=== PATIENT | male | born 1965 ===

== ENCOUNTER 2017-08-28 07:22 | Inpatient (IN) | payer MEDICAID ==
[2017-08-28 07:22] VITALS: BMI 33.3
[2017-08-28] MEDS ORDERED: Sodium Chloride 0.9% 1,000 ML IV STA ×2 (07:57→08:12)
[2017-08-28 08:13] LABS: BASO # 0.1 K/uL (0.0-0.2); BASO % 1.1 % (0.0-2.0); EOS # 0.1 K/uL (0.0-0.7); EOS % 1.8 % (0.0-4.0); HEMATOCRIT 40.2 % (35.0-51.0); LYMPH % 23.9 % (20.0-40.0); MEAN CELL VOLUME 82.6 fl (80.0-94.0); MEAN CORPUSCULAR HEMOGLOBIN 28.3 pg (27.0-31.0); MEAN CORPUSCULAR HGB CONC 34.3 g/dL (33.0-37.0); MEAN PLATELET VOLUME 8.4 fl (7.2-11.7); MONO # 0.7 K/uL (0.0-0.8); MONO % 8.8 % (0.0-10.0); NEUT # 5.4 K/uL (1.8-7.0); NEUT % 64.4 % (50.0-75.0); NRBC % 0.1 % (0.0-0.0); RED CELL DISTRIBUTION WIDTH 12.6 % (11.5-14.5); WHITE BLOOD COUNT 8.3 K/uL (4.8-10.8)
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
[2017-08-28 08:42] LABS: BILIRUBIN,TOTAL 0.8 mg/dl (0.2-1.3); CALCIUM 9.1 mg/dL (8.4-10.2); POTASSIUM 3.9 MMOL/L (3.6-5.0); TOTAL PROTEIN 7.9 G/DL (6.3-8.2)
--- NOTE | 2017-08-28 09:27 | RAD ---
HISTORY: Medical clearance COMPARISON: 07/12/2016 FINDINGS: LUNGS: No active pulmonary disease. PLEURA: No significant pleural effusion identified, no pneumothorax apparent. CARDIOVASCULAR: Normal. OSSEOUS STRUCTURES: No significant abnormalities. VISUALIZED UPPER ABDOMEN: Normal. OTHER FINDINGS: None. IMPRESSION: No active disease.
[2017-08-28 10:40] LABS: RBC URINE 3 /hpf (0-3); URINE BILIRUBIN NEGATIVE (NEGATIVE); URINE BLOOD NEGATIVE (NEGATIVE); URINE COLOR STRAW (YELLOW); URINE GLUCOSE (UA) 50 mg/dL (Normal); URINE KETONE NEGATIVE (NEGATIVE); URINE LEUKOCYTE ESTERASE NEG Leu/uL (Negative); URINE PROTEIN NEGATIVE (NEGATIVE); URINE UROBILINOGEN 0.2-1.0 mg/dL (0.2-1.0); WBC URINE 1 /hpf (0-5)
--- NOTE | 2017-08-28 12:05 | CARD ---
APPROVED REPORT EKG Measurement Heart [id number] <Conclusion> Sinus bradycardia Otherwise normal ECG
--- NOTE | 2017-08-28 18:01 | ED PDOC ---
- Laboratory Results Result Diagrams: 08/28/17 08:04 08/28/17 08:04 - ECG ECG Rhythm: Positive for: Normal QRS, Normal ST Segment, Sinus Bradycardia O2 Sat by Pulse Oximetry: 98 (RA) Pulse Ox Interpretation: Normal - Radiology X-Ray: Read By Radiologist - Progress ED Course And Treament: Accession No. : [id number] Patient Name / ID : LASHAWN MEDINA / [id number] Exam Date : 08/28/2017 08:35:32 ( Approved ) Study Comment : Sex / Age : M / 52Y Creator : Jeff Solis MD Dictator : Jeff Solis MD Slasher Operator : Director Ambulatory : Jeff Solis MD Approver2 : Report Date : 08/28/2017 09:25:45 My Comment : HISTORY: Medical clearance COMPARISON: 07/12/2016 FINDINGS: LUNGS: No active pulmonary disease. PLEURA: No significant pleural effusion identified, no pneumothorax apparent. CARDIOVASCULAR: Normal. OSSEOUS STRUCTURES: No significant abnormalities. VISUALIZED UPPER ABDOMEN: Normal. OTHER FINDINGS: None. IMPRESSION: No active disease. Medical Decision Making Medical Decision Making: Patient signed out to provider at [address] Vanessa pending crisis evaluation for suicidal attempt and depression. 1730 patient evaluated by plywood factory worker and patient is to be admitted. Medically stable for psychiatric admission. Scribe Attestation Documented by Camille Askew acting as a scribe for Trinity Choe MD. Provider Attestation: All medical record entries made by the Scribe were at my direction and personally dictated by me. I have reviewed the chart and agree that the record accurately reflects my personal performance of the history, physical exam, medical decision making, and the department course for this patient. I have also personally directed, reviewed, and agree with the discharge instructions and disposition. Disposition - Clinical Impression Clinical Impression: Depression, Polysubstance abuse - POA Present On Arrival: None - Disposition Disposition: Admitted as In-Patient Disposition Time: 05:30
[2017-08-28 21:29] VITALS: BP 102/68; PULSE 40; RESP 19; TEMP 98.1; O2SAT 98
== END 2017-08-29 00:15 | disposition short-term general hospital (02) | DRG 426 ==
LOC: H.ER 07:22 → H.ERHOLD 17:55 → UNDOADMIN 17:55 → H.PSYCH 22:49
PROVIDERS: ADMIT Psychiatry & Neurology Psychiatry; ATTEND Psychiatry & Neurology Psychiatry
DX: F32.9 Major depressive disorder, single episode, unspecified (principal); R00.1 Bradycardia, unspecified; E11.9 Type 2 diabetes mellitus without complications; F19.10 Other psychoactive substance abuse, uncomplicated; F20.9 Schizophrenia, unspecified; F43.10 Post-traumatic stress disorder, unspecified; F41.9 Anxiety disorder, unspecified; Z87.891 Personal history of nicotine dependence; Z88.0 Allergy status to penicillin

== ENCOUNTER 2017-10-30 17:27 | Emergency (ER) | payer MEDICAID ==
[2017-10-30 17:28] VITALS: BMI 27.0
[2017-10-30 17:48] VITALS: BP 115/73; PULSE 71; RESP 16; TEMP 98.1; O2SAT 96
--- NOTE | 2017-10-30 18:39 | ED PDOC ---
HPI: Dental Pain/Injury Time Seen by Provider: 10/30/17 17:54 Chief Complaint (Nursing): Dental Pain Chief Complaint (Provider): Toothache History Per: Patient History/Exam Limitations: no limitations Onset/Duration Of Symptoms: Days (2 days) Current Symptoms Are (Timing): Still Present Additional Complaint(s): 52 y/o male presents to the ED complaining of atraumatic left lower toothache, onset of 2 days. He reports of taking Motrin this morning, but experienced no relief. He denies any fever, trauma, chest pain, and shortness of breath. Past Medical History Reviewed: Historical Data, Nursing Documentation, Vital Signs Vital Signs: Last Vital Signs Temp 98.1 F 10/30/17 17:45 Pulse 71 10/30/17 17:45 Resp 16 10/30/17 17:45 BP 115/73 10/30/17 17:45 Pulse Ox 96 10/30/17 17:45 - Medical History PMH: Anxiety, Back Problems, Bipolar Disorder, Crohn's Disease, Depression, Diabetes, Hepatitis, Obstructive Bowel, Pneumonia, Post Traumatic Stress Disorder, Schizophrenia Denies: HIV, HTN, Chronic Kidney Disease, Seizures, Sexually Transmitted Disease - Surgical History Surgical History: Cholecystectomy, Hernia Repair - Family History Family History: States: Unknown Family Hx - Social History Current smoker - smoking cessation education provided: No Ex-Smoker (has not smoked in the last 12 months): No Alcohol: None Drugs: Denies - Immunization History Hx Tetanus Toxoid Vaccination: Yes Hx Influenza Vaccination: Yes (10/2016) Hx Pneumococcal Vaccination: No - Home Medications Home Medications: Ambulatory Orders Medication Instructions Recorded Cyclobenzaprine [Cyclobenzaprine 10 mg PO TID #30 tab 09/08/17 HCl] Naproxen [Naprosyn] 500 mg PO BID PRN #20 tablet 09/08/17 Clindamycin [Cleocin] 300 mg PO BID #14 cap 10/30/17 Naproxen [Anaprox DS] 550 mg PO BID PRN #15 tab 10/30/17 - Allergies Allergies/Adverse Reactions: Allergies Allergy/AdvReac Type Severity Reaction Status Date / Time Penicillins Allergy SHORTNESS Verified 10/30/17 17:45 OF BREATH Review of Systems ROS Statement: Except As Marked, All Systems Reviewed And Found Negative Constitutional: Negative for: Fever Cardiovascular: Negative for: Chest Pain Respiratory: Negative for: Shortness of Breath Physical Exam - Reviewed Nursing Documentation Reviewed: Yes Vital Signs Reviewed: Yes - Physical Exam ENT: Positive for: Other (no gingival swelling; pain in the left lower mandibular area w/o teeth) - ECG O2 Sat by Pulse Oximetry: 96 (RA) Pulse Ox Interpretation: Normal Medical Decision Making Medical Decision Making: Time: --18:00 Impression: --toothache Plan: --Toradol 60mg IM --Follow up with dentist Scribe Attestation: Documented by Christopher Campos acting as a scribe for PA. Sravani Disposition - Clinical Impression Clinical Impression: Toothache - Patient ED Disposition Is Patient to be Admitted: No - Disposition Referrals: [facility] [place] [Outside] [facility] [Outside] Disposition: Routine/Home Disposition Time: 18:00 Condition: STABLE Additional Instructions: Follow up with dentist for further evaluation Prescriptions: Clindamycin [Cleocin] 300 mg PO BID #14 cap Naproxen [Anaprox DS] 550 mg PO BID PRN #15 tab PRN Reason: pain Instructions: Toothache (ED) Forms: [employer] (Uzbek) Print Language: JAPANESE
== END 2017-10-30 18:39 | disposition home or self-care (01) ==
LOC: H.ER 17:27
DX: K08.89 Other specified disorders of teeth and supporting structures (principal); E11.9 Type 2 diabetes mellitus without complications; Z88.0 Allergy status to penicillin
CPT/HCPCS: 96372; 99281; J1885

== ENCOUNTER 2017-11-05 02:28 | Emergency (ER) | payer MEDICAID ==
[2017-11-05 02:28] VITALS: BMI 27.0
[2017-11-05 02:50] VITALS: BP 125/80; PULSE 91; RESP 16; TEMP 98.4; O2SAT 98
[2017-11-05] MEDS ORDERED: Mag&Al/Simet/Diphen/Lido 237 ML KIT PO STA (03:58)
--- NOTE | 2017-11-05 04:36 | ED PDOC ---
HPI: Dental Pain/Injury Time Seen by Provider: 11/05/17 03:49 Chief Complaint (Nursing): Dental Pain Chief Complaint (Provider): Mouth pain History Per: Patient History/Exam Limitations: no limitations Current Symptoms Are (Timing): Still Present Quality: "Pain" Additional Complaint(s): Alvaro Marlow is a 52 year old male, with a history of opioid abuse, who presents to the emergency department complaining of left lower jaw pain. Patient has dentures and reports he was seen recently and given antibiotics with pain medication, ultram. Patient feels like a bone is protruding but denies any fever, chills, nausea or vomit. No further medical complaints. PMD: None provided. Past Medical History Reviewed: Historical Data, Nursing Documentation, Vital Signs Vital Signs: Last Vital Signs Temp 98.4 F 11/05/17 02:47 Pulse 91 H 11/05/17 02:47 Resp 16 11/05/17 02:47 BP 125/80 11/05/17 02:47 Pulse Ox 98 11/05/17 02:47 - Medical History PMH: Anxiety, Back Problems, Bipolar Disorder, Crohn's Disease, Depression, Diabetes, Hepatitis, Obstructive Bowel, Pneumonia, Post Traumatic Stress Disorder, Schizophrenia Denies: HIV, HTN, Chronic Kidney Disease, Seizures, Sexually Transmitted Disease - Surgical History Surgical History: Cholecystectomy, Hernia Repair - Family History Family History: States: Unknown Family Hx - Social History Current smoker - smoking cessation education provided: Yes (Some days ) Alcohol: None Drugs: Other (opioids) - Immunization History Hx Tetanus Toxoid Vaccination: Yes Hx Influenza Vaccination: Yes (10/2016) Hx Pneumococcal Vaccination: No - Home Medications Home Medications: Ambulatory Orders Medication Instructions Recorded Cyclobenzaprine [Cyclobenzaprine 10 mg PO TID #30 tab 09/08/17 HCl] Naproxen [Naprosyn] 500 mg PO BID PRN #20 tablet 09/08/17 Clindamycin [Cleocin] 300 mg PO BID #14 cap 10/30/17 Naproxen [Anaprox DS] 550 mg PO BID PRN #15 tab 10/30/17 - Allergies Allergies/Adverse Reactions: Allergies Allergy/AdvReac Type Severity Reaction Status Date / Time Penicillins Allergy SHORTNESS Verified 10/30/17 17:45 OF BREATH Review of Systems ROS Statement: Except As Marked, All Systems Reviewed And Found Negative Constitutional: Negative for: Fever, Chills ENT: Positive for: Mouth Pain (left lower jaw pain) Gastrointestinal: Negative for: Nausea, Vomiting Physical Exam - Reviewed Nursing Documentation Reviewed: Yes Vital Signs Reviewed: Yes - Physical Exam Appears: Positive for: Non-toxic Head Exam: Positive for: ATRAUMATIC, NORMAL INSPECTION, NORMOCEPHALIC Skin: Positive for: Normal Color, Warm, Dry Eye Exam: Positive for: Normal appearance ENT: Positive for: Other (left sided mild swelling to lower gum line. No drainage, no erythema) Neck: Positive for: Normal, Painless ROM, Supple Cardiovascular/Chest: Positive for: Regular Rate, Rhythm. Negative for: Murmur Respiratory: Positive for: Normal Breath Sounds. Negative for: Respiratory Distress Extremity: Positive for: Normal ROM. Negative for: Deformity, Swelling Neurologic/Psych: Positive for: Alert - ECG O2 Sat by Pulse Oximetry: 98 (RA) Pulse Ox Interpretation: Normal Medical Decision Making Medical Decision Making: Initial Impression: Mouth pain Initial Plan: --Motrin tab 600 mg PO --reevaluation Scribe Attestation: Documented by Martin Chung, acting as a scribe for Caren Lange PA-C Provider Scribe Attestation: All medical record entries made by the Scribe were at my direction and personally dictated by me. I have reviewed the chart and agree that the record accurately reflects my personal performance of the history, physical exam, medical decision making, and the department course for this patient. I have also personally directed, reviewed, and agree with the discharge instructions and disposition. Disposition - Disposition
--- NOTE | 2017-11-05 04:50 | ED PDOC ---
HPI: Dental Pain/Injury Time Seen by Provider: 11/05/17 03:49 Chief Complaint (Nursing): Dental Pain Chief Complaint (Provider): Mouth pain History Per: Patient History/Exam Limitations: no limitations Onset/Duration Of Symptoms: Days Current Symptoms Are (Timing): Still Present Quality: "Pain" Additional Complaint(s): Alvaro Marlow is a 52 year old male, with a history of opioid abuse, who presents to the emergency department complaining of left lower jaw pain. Patient has dentures and reports he was seen recently and given antibiotics with pain medication, ultram. Patient feels like a bone is protruding but denies any fever, chills, nausea or vomit. No further medical complaints. PMD: None provided. Past Medical History Reviewed: Historical Data, Nursing Documentation, Vital Signs Vital Signs: Last Vital Signs Temp 98.4 F 11/05/17 02:47 Pulse 91 H 11/05/17 02:47 Resp 16 11/05/17 02:47 BP 125/80 11/05/17 02:47 Pulse Ox 98 11/05/17 02:47 - Medical History PMH: Anxiety, Back Problems, Bipolar Disorder, Crohn's Disease, Depression, Diabetes, Hepatitis, Obstructive Bowel, Pneumonia, Post Traumatic Stress Disorder, Schizophrenia Denies: HIV, HTN, Chronic Kidney Disease, Seizures, Sexually Transmitted Disease - Surgical History Surgical History: Cholecystectomy, Hernia Repair - Family History Family History: States: Unknown Family Hx - Social History Current smoker - smoking cessation education provided: Yes (Some days) Alcohol: None Drugs: Other (opioid) - Immunization History Hx Tetanus Toxoid Vaccination: Yes Hx Influenza Vaccination: Yes (10/2016) Hx Pneumococcal Vaccination: No - Home Medications Home Medications: Ambulatory Orders Medication Instructions Recorded Cyclobenzaprine [Cyclobenzaprine 10 mg PO TID #30 tab 09/08/17 HCl] Naproxen [Naprosyn] 500 mg PO BID PRN #20 tablet 09/08/17 Clindamycin [Cleocin] 300 mg PO BID #14 cap 10/30/17 Naproxen [Anaprox DS] 550 mg PO BID PRN #15 tab 10/30/17 - Allergies Allergies/Adverse Reactions: Allergies Allergy/AdvReac Type Severity Reaction Status Date / Time Penicillins Allergy SHORTNESS Verified 10/30/17 17:45 OF BREATH Review of Systems ROS Statement: Except As Marked, All Systems Reviewed And Found Negative Constitutional: Negative for: Fever, Chills ENT: Positive for: Mouth Pain (left lower jaw pain) Gastrointestinal: Negative for: Nausea, Vomiting Physical Exam - Reviewed Nursing Documentation Reviewed: Yes Vital Signs Reviewed: Yes - Physical Exam Appears: Positive for: Well, Non-toxic, No Acute Distress Head Exam: Positive for: ATRAUMATIC, NORMAL INSPECTION, NORMOCEPHALIC Skin: Positive for: Normal Color, Warm, Dry Eye Exam: Positive for: Normal appearance ENT: Positive for: Other (left sided mild swelling to lower gum line. No drainage. No erythema) Neck: Positive for: Normal, Painless ROM, Supple Cardiovascular/Chest: Positive for: Regular Rate, Rhythm. Negative for: Murmur Respiratory: Positive for: Normal Breath Sounds. Negative for: Respiratory Distress Extremity: Positive for: Normal ROM. Negative for: Deformity, Swelling Neurologic/Psych: Positive for: Alert - ECG O2 Sat by Pulse Oximetry: 98 (RA) Pulse Ox Interpretation: Normal Medical Decision Making Medical Decision Making: Initial Impression: Mouth Pain Initial Plan: --Motrin tab 600 mg PO --reevaluation Scribe Attestation: Documented by Martin Chung, acting as a scribe for Caren Lange PA-C Provider Scribe Attestation: All medical record entries made by the Scribe were at my direction and personally dictated by me. I have reviewed the chart and agree that the record accurately reflects my personal performance of the history, physical exam, medical decision making, and the department course for this patient. I have also personally directed, reviewed, and agree with the discharge instructions and disposition. Disposition - Clinical Impression Clinical Impression: Dental caries - Patient ED Disposition Is Patient to be Admitted: No - Disposition Disposition: Routine/Home Disposition Time: 04:40 Condition: STABLE Forms: [employer] (Moroccan)
== END 2017-11-05 04:36 | disposition home or self-care (01) ==
LOC: H.ER 02:28
DX: K02.9 Dental caries, unspecified (principal); Z88.0 Allergy status to penicillin

== ENCOUNTER 2017-11-28 22:47 | Emergency (ER) | payer MEDICAID ==
[2017-11-28 22:47] VITALS: BMI 27.0
[2017-11-28 22:50] VITALS: BP 138/74; PULSE 62; RESP 16; TEMP 98.2; O2SAT 100
--- NOTE | 2017-11-28 23:16 | ED PDOC ---
HPI: General Adult Time Seen by Provider: 11/28/17 22:53 Chief Complaint (Nursing): Medical Clearance Chief Complaint (Provider): Medical Clearance History Per: Patient History/Exam Limitations: no limitations Additional Complaint(s): Alvaro Marlow is a 52-year-old male who was brought to the emergency department by Lyle MELISSA for medical and psychiatric clearance. Patient denies having any complaints at this time. PMD: None provided Past Medical History Reviewed: Historical Data, Nursing Documentation, Vital Signs Vital Signs: Last Vital Signs Temp 98.2 F 11/28/17 22:49 Pulse 62 11/28/17 22:49 Resp 16 11/28/17 22:49 BP 138/74 11/28/17 22:49 Pulse Ox 100 11/28/17 22:49 - Medical History PMH: Anxiety, Back Problems, Bipolar Disorder, Crohn's Disease, Depression, Diabetes, Hepatitis, Obstructive Bowel, Pneumonia, Post Traumatic Stress Disorder, Schizophrenia Denies: HIV, HTN, Chronic Kidney Disease, Seizures, Sexually Transmitted Disease - Surgical History Surgical History: Cholecystectomy, Hernia Repair - Family History Family History: States: Unknown Family Hx - Immunization History Hx Tetanus Toxoid Vaccination: Yes Hx Influenza Vaccination: Yes (10/2016) Hx Pneumococcal Vaccination: No - Home Medications Home Medications: Ambulatory Orders Medication Instructions Recorded Cyclobenzaprine [Cyclobenzaprine 10 mg PO TID #30 tab 09/08/17 HCl] Naproxen [Naprosyn] 500 mg PO BID PRN #20 tablet 09/08/17 Clindamycin [Cleocin] 300 mg PO BID #14 cap 10/30/17 Naproxen [Anaprox DS] 550 mg PO BID PRN #15 tab 10/30/17 - Allergies Allergies/Adverse Reactions: Allergies Allergy/AdvReac Type Severity Reaction Status Date / Time Penicillins Allergy SHORTNESS Verified 11/28/17 22:49 OF BREATH Review of Systems ROS Statement: Except As Marked, All Systems Reviewed And Found Negative Psych: Negative for: Suicidal ideation (or homicidal ideation) Physical Exam - Reviewed Nursing Documentation Reviewed: Yes Vital Signs Reviewed: Yes - Physical Exam Appears: Positive for: Non-toxic, No Acute Distress Head Exam: Positive for: ATRAUMATIC, NORMAL INSPECTION, NORMOCEPHALIC Skin: Positive for: Normal Color, Warm, Dry Eye Exam: Positive for: EOMI, Normal appearance, PERRL Neck: Positive for: Normal, Painless ROM Cardiovascular/Chest: Positive for: Regular Rate, Rhythm. Negative for: Murmur Respiratory: Positive for: Normal Breath Sounds. Negative for: Accessory Muscle Use, Respiratory Distress Gastrointestinal/Abdominal: Positive for: Normal Exam, Soft. Negative for: Tenderness Back: Positive for: Normal Inspection. Negative for: Vertebral Tenderness Extremity: Positive for: Normal ROM. Negative for: Pedal Edema, Deformity Neurologic/Psych: Positive for: Alert, Oriented - ECG O2 Sat by Pulse Oximetry: 100 (RA) Pulse Ox Interpretation: Normal Medical Decision Making Medical Decision Making: Time: 23:00 Initial Impression: Medical & Psychiatric Clearance for Incarceration Initial Plan: * Crisis will evaluate patient Time: 23:14 Discussed with facility maintenance worker, patient is cleared for discharge as per Dr. Ryan. Clinical Impression: Adjustment Disorder Scribe Attestation: Documented by Pilar Bocanegra, acting as a scribe for Jose Rios MD Provider Scribe Attestation: All medical record entries made by the Scribe were at my direction and personally dictated by me. I have reviewed the chart and agree that the record accurately reflects my personal performance of the history, physical exam, medical decision making, and the department course for this patient. I have also personally directed, reviewed, and agree with the discharge instructions and disposition. Disposition - Clinical Impression Clinical Impression: Adjustment disorder - Patient ED Disposition Is Patient to be Admitted: No Counseled Patient/Family Regarding: Diagnosis - Disposition Referrals: Jasmin Kim MD [Family Provider] - Disposition: Discharged/Transfer to Law Enforcement Disposition Time: 23:14 Condition: STABLE Additional Instructions: Patient is medically and psychiatrically cleared for incarceration. Instructions: Mood Disorders (ED) Forms: [employer] (Latvian) - POA Present On Arrival: None
== END 2017-11-28 23:20 | disposition home or self-care (01) ==
LOC: H.ER 22:47
DX: F43.20 Adjustment disorder, unspecified; E11.9 Type 2 diabetes mellitus without complications; K50.90 Crohn's disease, unspecified, without complications; Z88.0 Allergy status to penicillin; F20.9 Schizophrenia, unspecified; F31.9 Bipolar disorder, unspecified; F43.10 Post-traumatic stress disorder, unspecified

== ENCOUNTER 2017-12-04 05:23 | Emergency (ER) | payer MEDICAID ==
[2017-12-04 05:23] VITALS: BMI 27.0
--- NOTE | 2017-12-04 05:42 | ED PDOC ---
HPI: Psych/Substance Abuse Time Seen by Provider: 12/04/17 05:32 Chief Complaint (Nursing): Substance Abuse Chief Complaint (Provider): Substance Abuse History Per: Patient Onset/Duration Of Symptoms: Mins (prior to arrival) Current Symptoms Are (Timing): Still Present Additional History Per: EMS Additional Complaint(s): 52 year old male with a history of substance abuse was brought in by EMS for possible substance abuse after found sleeping on the street prior to arrival. Past Medical History Reviewed: Historical Data, Nursing Documentation, Vital Signs Vital Signs: Last Vital Signs Temp 98.2 F 12/04/17 05:29 Pulse 92 H 12/04/17 05:29 Resp 18 12/04/17 05:29 BP 110/56 L 12/04/17 05:29 Pulse Ox 97 12/04/17 05:29 - Medical History PMH: Anxiety, Back Problems, Bipolar Disorder, Crohn's Disease, Depression, Diabetes, Hepatitis, Obstructive Bowel, Pneumonia, Post Traumatic Stress Disorder, Schizophrenia Denies: HIV, HTN, Chronic Kidney Disease, Seizures, Sexually Transmitted Disease - Surgical History Surgical History: Cholecystectomy, Hernia Repair - Family History Family History: States: Unknown Family Hx - Social History Current smoker - smoking cessation education provided: Yes Drugs: Cannabis, Cocaine, Opiates (heroin) - Immunization History Hx Tetanus Toxoid Vaccination: Yes Hx Influenza Vaccination: Yes (10/2016) Hx Pneumococcal Vaccination: No - Home Medications Home Medications: Ambulatory Orders Medication Instructions Recorded Cyclobenzaprine [Cyclobenzaprine 10 mg PO TID #30 tab 09/08/17 HCl] Naproxen [Naprosyn] 500 mg PO BID PRN #20 tablet 09/08/17 Clindamycin [Cleocin] 300 mg PO BID #14 cap 10/30/17 Naproxen [Anaprox DS] 550 mg PO BID PRN #15 tab 10/30/17 - Allergies Allergies/Adverse Reactions: Allergies Allergy/AdvReac Type Severity Reaction Status Date / Time Penicillins Allergy SHORTNESS Verified 11/28/17 22:49 OF BREATH Review of Systems ROS Statement: Except As Marked, All Systems Reviewed And Found Negative Review Of Systems: ROS cannot be obtained secondary to pt's inabilty to answer questions. (due to intoxication) Physical Exam - Reviewed Nursing Documentation Reviewed: Yes Vital Signs Reviewed: Yes - Physical Exam Appears: Positive for: No Acute Distress (appears disheveled) Head Exam: Positive for: ATRAUMATIC, NORMOCEPHALIC Skin: Positive for: Normal Color, Warm, Dry Eye Exam: Positive for: EOMI, Normal appearance, PERRL Cardiovascular/Chest: Positive for: Regular Rate, Rhythm Respiratory: Negative for: Respiratory Distress Extremity: Positive for: Normal ROM. Negative for: Deformity Neurologic/Psych: Positive for: Alert, Oriented, Gait (unsteady) - ECG O2 Sat by Pulse Oximetry: 97 (RA) Pulse Ox Interpretation: Normal Medical Decision Making Medical Decision Making: Time: 05:36 Impression: possible substance abuse Initial Plan: --Alcohol serum --Urine drug Patient is currently awake, alert and not voicing any medical complaints, but appears somnolent and has unsteady gait. Scribe Attestation: Documented by Nellie Vela, acting as a scribe for Kimberlee Wilkerson MD. Provider Scribe Attestation: All medical record entries made by the Scribe were at my direction and personally dictated by me. I have reviewed the chart and agree that the record accurately reflects my personal performance of the history, physical exam, medical decision making, and the department course for this patient. I have also personally directed, reviewed, and agree with the discharge instructions and disposition. Disposition - Clinical Impression Clinical Impression: Drug abuse, Polysubstance abuse - Patient ED Disposition Is Patient to be Admitted: Transfer of Care - Disposition Referrals: Jasmin Kim MD [Primary Care Provider] - Disposition: Transfer of Care Disposition Time: 07:00 Condition: STABLE Forms: [facility] (Latvian) Patient Signed Over To: Jose Enrique Russo Handoff Comments: pending clinical sobriety
--- NOTE | 2017-12-04 07:07 | ED PDOC ---
- ECG O2 Sat by Pulse Oximetry: 97 (RA) Pulse Ox Interpretation: Normal Medical Decision Making Medical Decision Making: Time: 07:00 Patient is signed out to me by Dr. Wilkerson, pending clinical sobriety. 13:20 - On reevaluation, patient is AAOx3. No slurred speech. No ataxia. Denies SI or HI. Admits to drug use but won't specify what. He has no complaints. Food was given. He was advised to discontinue drug use and to enter a rehab center. He was advised to follow up with a the clinic. Scribe Attestation: Documented by Vasiliy Sofia, acting as a scribe for Jose Enrique Russo MD. Provider Scribe Attestation: All medical record entries made by the Scribe were at my direction and personally dictated by me. I have reviewed the chart and agree that the record accurately reflects my personal performance of the history, physical exam, medical decision making, and the department course for this patient. I have also personally directed, reviewed, and agree with the discharge instructions and disposition. Disposition - Clinical Impression Clinical Impression: Drug abuse, Polysubstance abuse - POA Present On Arrival: None - Disposition Referrals: Jasmin Kim MD [Primary Care Provider] - Disposition: Routine/Home Disposition Time: 13:20 Condition: IMPROVED Additional Instructions: Mr Marlow, thank you for letting us take care of you today. Your provider was Dr. Russo. You were treated for Substance abuse. The emergency medical care you received today was directed at your acute symptoms. If you were prescribed any medication, please fill it and take as directed. It may take several days for your symptoms to resolve. Return to the Emergency Department if your symptoms worsen, do not improve, or if you have any other problems. Please contact your doctor or call one of the physicians/clinics you have been referred to that are listed on the Patient Visit Information form that is included in your discharge packet. Bring any paperwork you were given at discharge with you along with any medications you are taking to your follow up visit. Our treatment cannot replace ongoing medical care by a primary care provider (PCP) outside of the emergency department. Thank you for allowing the [facility] team to be part of your care today. If you had an X-Ray or CT scan: A Radiologist will review the ED reading if any change in treatment is needed we will contact you. If you had a blood, urine, or wound culture: It will take several days for the results, if any change in treatment is needed we will contact you. If you had an STI test: It will take 48 hours for the results. Please call after 1 week if you have not heard back. Instructions: Polysubstance Abuse (ED) Forms: [employer] (Dominican), [facility] ED School/Work Excuse
[2017-12-04 13:03] VITALS: BP 112/64; PULSE 70; RESP 18; TEMP 98.4
[2017-12-04 14:25] VITALS: O2SAT 97
== END 2017-12-04 13:27 | disposition home or self-care (01) ==
LOC: H.ER 05:23
DX: F19.20 Other psychoactive substance dependence, uncomplicated (principal); E11.9 Type 2 diabetes mellitus without complications; F17.200 Nicotine dependence, unspecified, uncomplicated; F20.9 Schizophrenia, unspecified; F31.9 Bipolar disorder, unspecified; F43.10 Post-traumatic stress disorder, unspecified; K50.90 Crohn's disease, unspecified, without complications; Z88.0 Allergy status to penicillin

== ENCOUNTER 2017-12-16 20:46 | Emergency (ER) | payer MEDICAID ==
[2017-12-16 20:46] VITALS: BMI 27.0
[2017-12-16 20:59] VITALS: BP 108/84; PULSE 83; RESP 18; TEMP 97.9; O2SAT 98
--- NOTE | 2017-12-16 21:17 | ED PDOC ---
HPI: Back Time Seen by Provider: 12/16/17 21:05 Chief Complaint (Nursing): Back Pain Chief Complaint (Provider): right hip pain and low back pain History Per: Patient Current Symptoms Are (Timing): Still Present Additional Complaint(s): 52 yo male presents to the ED complaining of right hip and low back pain s/p trip and fall down stairs 2 days ago. Patient states for the past 2 days he has been taking naprosyn and using IV heroin for the pain. Patient admits to using heroin about 1 hour prior to arrival but it did not help the pain. He denies any bowel or bladder dysfunction. Past Medical History Reviewed: Historical Data Vital Signs: Last Vital Signs Temp 97.9 F 12/16/17 20:56 Pulse 83 12/16/17 20:56 Resp 18 12/16/17 20:56 BP 108/84 12/16/17 20:56 Pulse Ox 98 12/16/17 20:56 - Medical History PMH: Anxiety, Back Problems, Bipolar Disorder, Crohn's Disease, Depression, Diabetes, Hepatitis, Pneumonia, Post Traumatic Stress Disorder, Schizophrenia Denies: Sexually Transmitted Disease - Surgical History Surgical History: Cholecystectomy, Hernia Repair - Family History Family History: States: No Known Family Hx - Living Arrangements Living Arrangements: With Family - Social History Current smoker - smoking cessation education provided: Yes Alcohol: None Drugs: Opiates (IV heroin) - Home Medications Home Medications: Ambulatory Orders Medication Instructions Recorded Cyclobenzaprine [Cyclobenzaprine 10 mg PO TID #30 tab 09/08/17 HCl] Naproxen [Naprosyn] 500 mg PO BID PRN #20 tablet 09/08/17 Clindamycin [Cleocin] 300 mg PO BID #14 cap 10/30/17 Naproxen [Anaprox DS] 550 mg PO BID PRN #15 tab 10/30/17 Ibuprofen [Motrin Tab] 800 mg PO Q8 PRN #20 tab 12/16/17 - Allergies Allergies/Adverse Reactions: Allergies Allergy/AdvReac Type Severity Reaction Status Date / Time Penicillins Allergy SHORTNESS Verified 12/16/17 20:55 OF BREATH Review of Systems ROS Statement: Except As Marked, All Systems Reviewed And Found Negative Musculoskeletal: Positive for: Other (low back pain and right hip pain s/p fall 2 days ago) Neurological: Positive for: Other (no head injury or LOC) Physical Exam - Reviewed Nursing Documentation Reviewed: Yes Vital Signs Reviewed: Yes - Physical Exam Appears: Positive for: Well, Non-toxic, No Acute Distress Head Exam: Positive for: ATRAUMATIC Skin: Positive for: Normal Color. Negative for: Rash Neck: Positive for: Normal Cardiovascular/Chest: Positive for: Regular Rate, Rhythm Respiratory: Positive for: Normal Breath Sounds Back: Positive for: Vertebral Tenderness (diffuse tenderness lower lumbar region , negative bilateral straight leg raise) Extremity: Positive for: Other (tenderness lateral aspect of right hip with full rom) Neurologic/Psych: Positive for: Alert, Oriented - ECG O2 Sat by Pulse Oximetry: 98 (RA) Pulse Ox Interpretation: Normal - Other Rad L/S Spine x-ray X-Ray: Interpreted by Me, Viewed By Me X-Ray Interpretation: no fx, no dis Pelvis and right hip x-ray X-Ray: Interpreted by Me, Viewed By Me X-Ray Interpretation: no fx, no dis Medical Decision Making Medical Decision Making: Time: --21:15 Impression: 52 year old male with right hip pain and low back pain Plan: --Acetaminophen 975mg PO --Right hip and pelvis x-ray --L/S Spine x-ray Patient is aware of x-ray results. Rx motrin given. Patient was referred to clinic for follow up. Scribe Attestation: Documented by Christopher Campos acting as a scribe for ELISEO Guevara. Provider Attestation: All medical record entries made by the Scribe were at my direction and personally dictated by me. I have reviewed the chart and agree that the record accurately reflects my personal performance of the history, physical exam, medical decision making, and the department course for this patient. I have also personally directed, reviewed, and agree with the discharge instructions and disposition. Disposition - Clinical Impression Clinical Impression: Back strain, Hip sprain - Patient ED Disposition Is Patient to be Admitted: No Counseled Patient/Family Regarding: Studies Performed, Diagnosis, Need For Followup, Rx Given - Disposition Referrals: [facility] [Outside] Disposition: Routine/Home Disposition Time: 21:40 Condition: STABLE Additional Instructions: Take rx meds as directed. Follow up with clinic. Prescriptions: Ibuprofen [Motrin Tab] 800 mg PO Q8 PRN #20 tab PRN Reason: Pain, Moderate (4-7) Instructions: Lumbar Muscle Strain (DC), Lower Extremity Muscle Strain Forms: [facility] (Luxembourgish)
--- NOTE | 2017-12-17 10:07 | RAD ---
PROCEDURE: Radiographs of the Lumbar Spine. HISTORY: trauma COMPARISON: No prior. FINDINGS: BONES: Normal alignment. No listhesis. No fracture. DISC SPACES: Multilevel disc space narrowing and spondylosis. OTHER FINDINGS: None. IMPRESSION: Multilevel disc space narrowing and spondylosis.
--- NOTE | 2017-12-17 10:11 | RAD ---
HISTORY: trauma COMPARISON: No prior FINDINGS: BONES: Normal. No fracture. JOINTS: Normal. No osteoarthritis. SOFT TISSUE: Normal. OTHER FINDINGS: None . IMPRESSION: Normal Bone Xray.
== END 2017-12-16 23:09 | disposition home or self-care (01) ==
LOC: H.ER 20:46
DX: S39.012A Strain of muscle, fascia and tendon of lower back, initial encounter (principal); S73.101A Unspecified sprain of right hip, initial encounter; W10.9XXA Fall (on) (from) unspecified stairs and steps, initial encounter

== ENCOUNTER 2017-12-17 06:10 | Emergency (ER) | payer MEDICAID ==
[2017-12-17 06:11] VITALS: BMI 27.0
[2017-12-17 06:35] VITALS: BP 129/65; PULSE 58; RESP 18; TEMP 97.7; O2SAT 99
--- NOTE | 2017-12-17 07:28 | ED PDOC ---
HPI: Back Time Seen by Provider: 12/17/17 07:02 Chief Complaint (Nursing): Back Pain Chief Complaint (Provider): back pain History Per: Patient History/Exam Limitations: no limitations Onset/Duration Of Symptoms: Days (1 day ago) Current Symptoms Are (Timing): Still Present Additional Complaint(s): 52 yo homeless man presents to the ED today complaining of back pain, onset of 1 day ago. Patient has no specific complaints, but says that he is living on the [address] and was seen in this ED yesterday for back pain, but did not fill out the prescription for Motrin. Past Medical History Reviewed: Historical Data, Nursing Documentation, Vital Signs Vital Signs: Last Vital Signs Temp 97.7 F 12/17/17 06:33 Pulse 58 L 12/17/17 06:33 Resp 18 12/17/17 06:33 BP 129/65 12/17/17 06:33 Pulse Ox 99 12/17/17 06:33 - Medical History PMH: Anxiety, Back Problems, Bipolar Disorder, Crohn's Disease, Depression, Diabetes, Hepatitis, Obstructive Bowel, Pneumonia, Post Traumatic Stress Disorder, Schizophrenia Denies: HIV, HTN, Chronic Kidney Disease, Seizures, Sexually Transmitted Disease - Surgical History Surgical History: Cholecystectomy, Hernia Repair - Family History Family History: States: Unknown Family Hx - Social History Current smoker - smoking cessation education provided: Yes (occasional) Alcohol: None Drugs: Opiates (heroin) - Immunization History Hx Tetanus Toxoid Vaccination: Yes Hx Influenza Vaccination: Yes (10/2016) Hx Pneumococcal Vaccination: No - Home Medications Home Medications: Ambulatory Orders Medication Instructions Recorded Cyclobenzaprine [Cyclobenzaprine 10 mg PO TID #30 tab 09/08/17 HCl] Naproxen [Naprosyn] 500 mg PO BID PRN #20 tablet 09/08/17 Clindamycin [Cleocin] 300 mg PO BID #14 cap 10/30/17 Naproxen [Anaprox DS] 550 mg PO BID PRN #15 tab 10/30/17 Ibuprofen [Motrin Tab] 800 mg PO Q8 PRN #20 tab 12/16/17 - Allergies Allergies/Adverse Reactions: Allergies Allergy/AdvReac Type Severity Reaction Status Date / Time Penicillins Allergy SHORTNESS Verified 12/16/17 20:55 OF BREATH Review of Systems ROS Statement: Except As Marked, All Systems Reviewed And Found Negative Constitutional: Negative for: Fever Musculoskeletal: Positive for: Back Pain Physical Exam - Reviewed Nursing Documentation Reviewed: Yes Vital Signs Reviewed: Yes - Physical Exam Appears: Positive for: Non-toxic, No Acute Distress Head Exam: Positive for: ATRAUMATIC Skin: Positive for: Normal Color Cardiovascular/Chest: Positive for: Regular Rate, Rhythm. Negative for: Murmur Respiratory: Positive for: Normal Breath Sounds. Negative for: Respiratory Distress Back: Positive for: Normal Inspection. Negative for: R CVA Tenderness Extremity: Positive for: Normal ROM, Pedal Edema. Negative for: Deformity Neurologic/Psych: Positive for: Alert, Oriented - ECG O2 Sat by Pulse Oximetry: 99 (RA) Pulse Ox Interpretation: Normal Medical Decision Making Medical Decision Making: Time: --07:02 Impression: --Back pain Plan: --discharge Reassess: -- Scribe Attestation: Documented by Christopher Campos acting as a scribe for Andre Freeman MD. Provider Attestation: All medical record entries made by the Scribe were at my direction and personally dictated by me. I have reviewed the chart and agree that the record accurately reflects my personal performance of the history, physical exam, medical decision making, and the department course for this patient. I have also personally directed, reviewed, and agree with the discharge instructions and disposition. Disposition - Clinical Impression Clinical Impression: Chronic back pain - Patient ED Disposition Is Patient to be Admitted: No Counseled Patient/Family Regarding: Diagnosis, Need For Followup - Disposition Referrals: [facility] [Outside] Disposition: Routine/Home Disposition Time: 08:29 Condition: FAIR Instructions: Chronic Pain (DC) Forms: [employer] (Turkmen)
== END 2017-12-17 09:50 | disposition home or self-care (01) ==
LOC: H.ER 06:10
DX: M54.9 Dorsalgia, unspecified (principal)

== ENCOUNTER 2018-04-10 22:17 | Emergency (ER) | payer MEDICAID ==
[2018-04-10 22:17] VITALS: BMI 27.0
[2018-04-10 22:24] VITALS: BP 105/73; PULSE 88; TEMP 98.3; O2SAT 97
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
[2018-04-10] MEDS ORDERED: Naproxen 500 MG TAB PO STA (22:44)
[2018-04-10] MEDS ORDERED: Naproxen 500 MG TAB PO ONE (22:57)
[2018-04-10 23:35] VITALS: RESP 16
--- NOTE | 2018-04-11 08:06 | RAD ---
PROCEDURE: Right Wrist Radiographs. HISTORY: s/p fall, joint pain COMPARISON: Right wrist radiographs 02/08/2010. FINDINGS: BONES: No acute fracture or destructive bony lesion identified. JOINTS: Normal. No dislocation. SOFT TISSUES: Normal. OTHER FINDINGS: None. IMPRESSION: Unremarkable, stable right wrist radiographs.
== END 2018-04-11 00:10 | disposition home or self-care (01) ==
LOC: H.ER 22:17
DX: S92.251A Displaced fracture of navicular [scaphoid] of right foot, initial encounter for closed fracture (principal); V19.9XXA Pedal cyclist (driver) (passenger) injured in unspecified traffic accident, initial encounter; Y93.55 Activity, bike riding; E11.9 Type 2 diabetes mellitus without complications; F17.200 Nicotine dependence, unspecified, uncomplicated; Z86.59 Personal history of other mental and behavioral disorders; Z88.0 Allergy status to penicillin

== ENCOUNTER 2018-05-09 16:30 | Emergency (ER) | payer MEDICAID ==
[2018-05-09 16:31] VITALS: BMI 27.0
[2018-05-09] MEDS ORDERED: Naloxone 0.4 mg/ml Inj (Adult) ONE (16:43)
[2018-05-09] MEDS ORDERED: Naloxone 0.4 mg/ml Inj (Adult) IVP STA (16:46)
--- NOTE | 2018-05-09 16:49 | ED PDOC ---
HPI: Psych/Substance Abuse Time Seen by Provider: 05/09/18 16:41 Chief Complaint (Nursing): Substance Abuse History Per: EMS Onset/Duration Of Symptoms: Unknown Current Symptoms Are (Timing): Still Present Modifying Factor(s): Narcotics Severity: Moderate Additional Complaint(s): Brought by EMS found in hallway of building. Admits to using 2 bags of Heroin earlier today. Denies SI/HI Past Medical History Vital Signs: Last Vital Signs Temp 98.8 F 05/09/18 16:32 Pulse 126 H 05/09/18 16:32 Resp 21 05/09/18 16:32 BP 91/66 L 05/09/18 16:32 Pulse Ox 99 05/09/18 16:32 - Medical History PMH: Anxiety, Back Problems, Bipolar Disorder, Crohn's Disease, Depression, Diabetes, Obstructive Bowel, Post Traumatic Stress Disorder, Schizophrenia Denies: Hepatitis, HIV, HTN, Chronic Kidney Disease, Seizures, Sexually Transmitted Disease - Surgical History Surgical History: Cholecystectomy, Hernia Repair - Family History Family History: States: Unknown Family Hx - Immunization History Hx Tetanus Toxoid Vaccination: Yes Hx Influenza Vaccination: Yes (10/2016) Hx Pneumococcal Vaccination: No - Home Medications Home Medications: Ambulatory Orders Medication Instructions Recorded Benztropine [Cogentin] 1 mg PO BID #60 tab 05/09/18 Gabapentin [Neurontin] 300 mg PO BID #60 cap 05/09/18 Haloperidol [Haldol] 10 mg PO BID #60 tab 05/09/18 Mirtazapine [Remeron] 30 mg PO HS #30 tab 05/09/18 Naloxone HCl [Narcan] 4 mg NS ONCE #1 spray 05/09/18 - Allergies Allergies/Adverse Reactions: Allergies Allergy/AdvReac Type Severity Reaction Status Date / Time Penicillins Allergy SHORTNESS Verified 04/30/18 09:56 OF BREATH Review of Systems Review Of Systems: ROS cannot be obtained secondary to pt's inabilty to answer questions. Physical Exam - Reviewed Nursing Documentation Reviewed: Yes Vital Signs Reviewed: Yes - Physical Exam Appears: Positive for: Non-toxic, No Acute Distress Head Exam: Positive for: ATRAUMATIC, NORMAL INSPECTION, NORMOCEPHALIC Skin: Positive for: Normal Color, Warm, DRY Eye Exam: Positive for: EOMI, PERRL ([place]) ENT: Positive for: Normal ENT Inspection Neck: Positive for: Normal, Painless ROM Cardiovascular/Chest: Positive for: Regular Rate, Rhythm Respiratory: Positive for: CNT, Normal Breath Sounds Gastrointestinal/Abdominal: Positive for: Normal Exam, Soft Back: Positive for: Normal Inspection Extremity: Positive for: Normal ROM Neurologic/Psych: Negative for: Alert (Lethatrgic responsive to painful stimuli) , Motor/Sensory Deficits - ECG O2 Sat by Pulse Oximetry: 99 - Progress Re-evaluation Time: 16:51 Condition: Improved (Awake alert oriented x 3 Denies SI/HI. Requesting to be discharged) Medical Decision Making Medical Decision Making: Responded to 0.9 Narcan IV by becoming awake and responsive Disposition - Clinical Impression Clinical Impression: Substance abuse - Patient ED Disposition Is Patient to be Admitted: No Counseled Patient/Family Regarding: Diagnosis, Need For Followup, Rx Given - Disposition Referrals: [facility] [Outside] Disposition: Routine/Home Disposition Time: 16:50 Condition: FAIR Prescriptions: Naloxone HCl [Narcan] 4 mg NS ONCE #1 spray Instructions: Drug Abuse and Drug Addiction (DC) Forms: [employer] (Hebrew)
[2018-05-09 17:17] VITALS: BP 120/70; PULSE 76; RESP 20; TEMP 98.6; O2SAT 98
== END 2018-05-09 17:18 | disposition home or self-care (01) ==
LOC: H.ER 16:30
DX: F19.10 Other psychoactive substance abuse, uncomplicated (principal); E11.9 Type 2 diabetes mellitus without complications; Z86.59 Personal history of other mental and behavioral disorders; K50.90 Crohn's disease, unspecified, without complications; Z88.0 Allergy status to penicillin; F43.10 Post-traumatic stress disorder, unspecified
CPT/HCPCS: 82948; 96374; 99284; J2310

== ENCOUNTER 2019-02-05 21:24 | Emergency (ER) | payer MEDICAID, OTHER ==
[2019-02-05 21:24] VITALS: BMI 27.0
[2019-02-05 22:00] VITALS: BP 148/90; PULSE 86; RESP 16; TEMP 98.3; O2SAT 97
--- NOTE | 2019-02-05 22:30 | ED PDOC ---
HPI: Back Time Seen by Provider: 02/05/19 22:08 Chief Complaint (Nursing): Back Pain Chief Complaint (Provider): back pain History Per: Patient History/Exam Limitations: no limitations Onset/Duration Of Symptoms: Days (1 month) Current Symptoms Are (Timing): Still Present Exacerbating Factor(s): Turning, Movement, Standing Additional Complaint(s): [place] [facility] [place] secondary to [place] then sent to rehab for prolonged iv antibiotics and physical therapy discharged from rehab today because "insurance ran out" numbness to legs which is essentially unchanged since hospitalization also reporting constipation for 5 days but had small movement today PMD Dr Abdi Past Medical History Reviewed: Historical Data, Nursing Documentation, Vital Signs Vital Signs: Last Vital Signs Temp 98.3 F 02/05/19 21:57 Pulse 86 02/05/19 21:57 Resp 16 02/05/19 21:57 BP 148/90 02/05/19 21:57 Pulse Ox 97 02/05/19 21:57 - Medical History PMH: Anxiety, Back Problems, Bipolar Disorder, Crohn's Disease, Depression, Diabetes, Obstructive Bowel, Post Traumatic Stress Disorder, Schizophrenia Denies: Hepatitis, HIV, HTN, Chronic Kidney Disease, Seizures, Sexually Transmitted Disease - Surgical History Surgical History: Cholecystectomy, Hernia Repair - Family History Family History: States: Unknown Family Hx - Social History Drugs: Denies - Immunization History Hx Tetanus Toxoid Vaccination: Yes Hx Influenza Vaccination: Yes (10/2016) Hx Pneumococcal Vaccination: No - Home Medications Home Medications: Ambulatory Orders Medication Instructions Recorded Benztropine [Cogentin] 1 mg PO BID #60 tab 05/09/18 Gabapentin [Neurontin] 300 mg PO BID #60 cap 05/09/18 Mirtazapine [Remeron] 30 mg PO HS #30 tab 05/09/18 Benztropine [Cogentin] 1 mg PO BID #60 tab 06/13/18 Divalproex [Depakote DR] 250 mg PO BID #60 tcp 06/13/18 Haloperidol [Haldol] 10 mg PO BID #60 tab 06/13/18 traZODone [Desyrel] 50 mg PO HS #30 tab 06/13/18 Acetaminophen [Tylenol Extra 1,000 mg PO Q6 PRN #100 tablet 02/05/19 Strength] Cyclobenzaprine [Flexeril] 5 mg PO Q8 PRN #15 tab 02/05/19 Ibuprofen [Motrin Tab] 600 mg PO Q8 PRN #60 tab 02/05/19 Polyethylene Glycol 3350 [Miralax] 17 gm PO DAILY PRN #1 bottle 02/05/19 - Allergies Allergies/Adverse Reactions: Allergies Allergy/AdvReac Type Severity Reaction Status Date / Time Penicillins Allergy SHORTNESS Verified 06/01/18 16:57 OF BREATH Review of Systems ROS Statement: Except As Marked, All Systems Reviewed And Found Negative (and as per HPI) Gastrointestinal: Positive for: Constipation Musculoskeletal: Positive for: Back Pain, Leg Pain (bilateral but LEFT worse than RIGHT, hips and upper legs) Neurological: Positive for: Weakness, Numbness Physical Exam - Reviewed Nursing Documentation Reviewed: Yes Vital Signs Reviewed: Yes - Physical Exam Appears: Positive for: Non-toxic, In Acute Distress (minimal painful) Head Exam: Positive for: ATRAUMATIC, NORMOCEPHALIC Skin: Positive for: Warm, Dry Eye Exam: Positive for: EOMI, PERRL Neck: Positive for: Painless ROM, Supple Cardiovascular/Chest: Positive for: Regular Rate, Rhythm. Negative for: Murmur Respiratory: Positive for: Normal Breath Sounds. Negative for: Respiratory Distress Gastrointestinal/Abdominal: Positive for: Soft. Negative for: Tenderness, Mass, Distended, Guarding, Rebound Back: Positive for: Other (diffuse ttp lumbar area spinal and paraspinal, able to twist around in bed and sit upright). Negative for: Decreased ROM Extremity: Positive for: Normal ROM, Other (+modified bilateral SLR). Negative for: Deformity Lymphatic: Negative for: Adenopathy Neurological/Psych: Positive for: Awake, Alert, Other (neg saddle anesthia, subjective decrease sensation LEFT lower extremity) - ECG O2 Sat by Pulse Oximetry: 97 Medical Decision Making Medical Decision Making: acute on chronic back pain with recent h/o spinal infection due to IVDA (spinal abscess) no signs of systemic infection at this time advised about current ED STOP protocol for management of pain and given history will only provide non-opiates at this time. Disposition - Clinical Impression Clinical Impression: Chronic back pain, Constipation Counseled Patient/Family Regarding: Diagnosis - Disposition Referrals: Sherron Abdi MD [Staff Provider] - (FOLLOWUP WITH DR ABDI TOMORROW FOR FURTHER MANAGEMENT) Disposition: Routine/Home Disposition Time: 22:36 Condition: STABLE Prescriptions: Acetaminophen [Tylenol Extra Strength] 1,000 mg PO Q6 PRN #100 tablet PRN Reason: FEVER OR PAIN Cyclobenzaprine [Flexeril] 5 mg PO Q8 PRN #15 tab PRN Reason: muscle spasm Ibuprofen [Motrin Tab] 600 mg PO Q8 PRN #60 tab PRN Reason: Pain, Moderate (4-7) Polyethylene Glycol 3350 [Miralax] 17 gm PO DAILY PRN #1 bottle PRN Reason: Constipation Instructions: Chronic Pain (DC), Constipation, Adult (DC), Low Back Pain (DC)
== END 2019-02-05 23:30 | disposition home or self-care (01) ==
LOC: H.ER 21:24
DX: M54.9 Dorsalgia, unspecified (principal); G89.29 Other chronic pain; K59.00 Constipation, unspecified
CPT/HCPCS: 96372; 99283; J1885